=== PATIENT | male | born 1985 ===

== ENCOUNTER 2024-03-29 20:49 | Inpatient (IN) ==
[2024-03-29 21:55] LABS: ABS Basophils 0.1 10^3/uL (0.0-0.1); ABS Lymphocytes 2.5 10^3/uL (1.0-4.8); ABS Neutrophils 5.2 10^3/uL (1.5-7.6); ABS Nucleated RBC 0.01 10^3/ul; Eosinophil % 0.4 %; Hematocrit 49.4 % (38-53); Hemoglobin 16.8 g/dL (13.2-16.3); Lymphocyte % 28.7 %; Mean Corpuscular Hemoglobin 30.3 pg (27-33); Mean Corpuscular Volume 89.2 fL (80-97); Mean Platelet Volume 8.3 fL (7.5-11.2); Nucleated Red Blood Cells % 0.2 %/100WBC (0.0-0.8); Platelet Count 175 10^3/uL (150-450); Red Blood Count 5.54 10^6/uL (4.06-5.63); Red Cell Distribution Width 13.4 % (12-17); White Blood Count 8.9 10^3/uL (3.6-10.2)
[2024-03-29] MEDS: LACTATED RINGERS IV ONE (22:10)
[2024-03-29 22:11] LABS: INR 1.17 (0.85-1.14)
[2024-03-29 22:32] LABS: Albumin/Globulin Ratio 1.3 (1-3); C Reactive Protein 134.29 mg/L (<8.01); Calcium 8.9 mg/dL (8.6-10.3); Creatinine, Serum 0.88 mg/dL (0.67-1.17); Globulin 3.1 g/dL (2-4); Potassium 3.8 mmol/L (3.5-5.0); Total Bilirubin 0.6 mg/dL (0.2-1.0); Total Protein 7.1 g/dL (6.4-8.9); eGFR CKD-EPI 111.5 (>60)
[2024-03-30] MEDS: Iodixanol (CONTRAST) 320 MG/ML 100 ML SDV IV ONE
[2024-03-30 00:11] LABS: Urine Appearance Clear; Urine Bilirubin Negative (Negative); Urine Blood Negative (Negative); Urine Color Yellow; Urine Glucose 4+ (>=1000 mg/dL) (Negative); Urine Ketones Negative (Negative); Urine Nitrite Negative (Negative); Urine Protein Negative (Negative); Urine Specific Gravity 1.022 (1.002-1.030); Urine Urobilinogen 2+ (Negative)
[2024-03-30] MEDS: Piperacillin/Tazobac 3.375 BAG 3.375 GM/100 ML BAG IV ONE (02:24)
[2024-03-30] MEDS ORDERED: Dextrose 50% Syringe 50 ml 25 GM/50 ML SYRINGE IV PUSH PRN (03:07)
[2024-03-30] MEDS: Nicotine PATCH 7 MG/24 HR PATCH TRANSDERM SCH (05:22)
[2024-03-30] MEDS: cefTRIAXone 1 gm/50 mL D5W 1 GM/50 ML BAG IV SCH (05:38)
[2024-03-30 05:49] LABS: ABS Eosinophils 0.1 10^3/uL (0.0-0.5); ABS Monocytes 1.1 10^3/uL (0.0-1.1); ABS Neutrophils 3.1 10^3/uL (1.5-7.6); ABS Nucleated RBC 0.01 10^3/ul; Eosinophil % 0.9 %; Hematocrit 44.9 % (38-53); Hemoglobin 15.5 g/dL (13.2-16.3); Lymphocyte % 32.1 %; Mean Corpuscular Hemoglobin 30.7 pg (27-33); Mean Corpuscular Hgb Conc 34.5 g/dL (31-36); Mean Corpuscular Volume 88.9 fL (80-97); Mean Platelet Volume 8.2 fL (7.5-11.2); Nucleated Red Blood Cells % 0.2 %/100WBC (0.0-0.8); Platelet Count 153 10^3/uL (150-450); Red Blood Count 5.05 10^6/uL (4.06-5.63); Red Cell Distribution Width 13.2 % (12-17); White Blood Count 6.2 10^3/uL (3.6-10.2)
[2024-03-30 06:20] LABS: Albumin 3.4 g/dL (3.2-5.2); Albumin/Globulin Ratio 1.5 (1-3); Calcium 8.4 mg/dL (8.6-10.3); Creatinine, Serum 0.56 mg/dL (0.67-1.17); Globulin 2.3 g/dL (2-4); Potassium 3.7 mmol/L (3.5-5.0); Total Bilirubin 0.8 mg/dL (0.2-1.0); Total Protein 5.7 g/dL (6.4-8.9); eGFR CKD-EPI 127.8 (>60)
[2024-03-30] MEDS: DOXYcycline 100 MG in NS 0.9% 250 ml 250 ML IVPB SCH (06:22)
[2024-03-30 06:41] LABS: HIV 4th Generation Nonreactive (Nonreactive)
[2024-03-30 09:12] LABS: HDL Cholesterol 23.4 mg/dL
[2024-03-30 09:27] LABS: TSH Ultra Thyroid Stim Horm 3.92 mcIU/mL (0.34-5.60)
[2024-03-31 06:39] LABS: Calcium 8.8 mg/dL (8.6-10.3); Creatinine, Serum 0.66 mg/dL (0.67-1.17); Potassium 4.3 mmol/L (3.5-5.0); eGFR CKD-EPI 121.6 (>60)
[2024-03-31 09:33] VITALS: BP 120/70
[2024-03-31 13:20] LABS: Chlamydia trachomatis NAA Negative (Negative); Neisseria gonorrhoeae (GC) NAA Negative (Negative)
[2024-04-02 12:21] LABS: Mumps IgM Antibody Index 0.29 (0.00-0.79); Mumps Virus IgG Antibody Positive; Mumps Virus IgM Antibody Negative (Negative)
[2024-04-02 15:16] LABS: Varicella-Zoster IgM Antibody Negative (Negative)
== END 2024-03-31 13:15 | disposition home or self-care (01) | DRG 872 ==
LOC: ED 20:49 → SUATTDRO 03-30 03:03 → EDHOLD 03-30 03:03 → MED 03-30 03:52
PROVIDERS: ADMIT Hospitalist; ATTEND Internal Medicine